=== PATIENT | female | born 1985 | race Caucasian/White ===

== ENCOUNTER 2024-02-28 06:26 | Emergency (ER) | payer MEDICAID ==
[~2024-02-28] VITALS: Ht 170.2 cm; Wt 61.8 kg
[~2024-02-28 06:26] MED LIST: HYDR-4353 PO; HYDR-4383 PO
[2024-02-28 06:41] VITALS: TEMP 96.4
[2024-02-28] MEDS: ketorolac trometh 30MG/ML vial 30 MG/ML VIAL IV ONE (07:10)
[2024-02-28] MEDS: normal saline 1000ML IV soln IVB ONE (07:10)
[2024-02-28] MEDS: ondansetron/PF 4mg/2ml inj IV ONE ×2 (07:19→09:42)
[2024-02-28 07:25] LABS: BASOPHILS # (AUTO) 0.1 X10'3 (0-0.2); BASOPHILS % (AUTO) 0.6 % (0-1); EOSINOPHILS # (AUTO) 0.1 X10'3 (0-0.9); EOSINOPHILS % (AUTO) 1.5 % (0-6); HEMATOCRIT 39.9 % (35.0-45.0); HEMOGLOBIN 13.3 g/dl (12.0-16.0); LYMPHOCYTES # (AUTO) 2.6 X10'3 (1.1-4.8); LYMPHOCYTES % (AUTO) 27.9 % (21-51); MEAN CORPUSCULAR HEMOGLOBIN 32.3 PG (27.0-31.0); MEAN CORPUSCULAR HGB CONC 33.3 g/dL (33.0-36.5); MEAN PLATELET VOLUME 8.5 FL (7.4-10.4); MONOCYTES # (AUTO) 0.6 X10'3 (0-0.9); MONOCYTES % (AUTO) 6.6 % (2-12); NEUTROPHILS # (AUTO) 5.9 X10'3 (1.8-7.7); NEUTROPHILS % (AUTO) 63.4 % (42-75); PLATELET COUNT 258 X10'3 (140-440); RED BLOOD COUNT 4.11 X10'6 (4.20-5.60); RED CELL DISTRIBUTION WIDTH 12.6 % (11.5-14.5); WHITE BLOOD COUNT 9.3 X10'3 (4.5-11.0)
[2024-02-28 07:42] LABS: ALANINE AMINOTRANSFERASE 13 U/L (12-78); ALBUMIN 3.6 G/DL (3.4-5.0); ALBUMIN/GLOBULIN RATIO 0.9 (1.1-1.5); ALKALINE PHOSPHATASE 72 IU/L (46-116); ANION GAP 6 (8-16); ASPARTATE AMINO TRANSFERASE 19 U/L (10-37); BILIRUBIN,TOTAL 0.2 MG/DL (0.1-1.0); BLOOD UREA NITROGEN 9 MG/DL (7-18); BUN/CREATININE RATIO 12.7 (10.0-20.0); CHLORIDE 105 MMOL/L (99-107); CREATININE 0.71 MG/DL (0.40-0.90); GLUCOSE 85 MG/DL (70-104); LIPASE 38 U/L (16-77); POTASSIUM 3.9 MMOL/L (3.5-5.1); SODIUM 141 MMOL/L (135-145); TOTAL CARBON DIOXIDE 29.7 MMOL/L (24-32); TOTAL PROTEIN 7.8 G/DL (6.4-8.2); eCRCL 102 ML/MIN; eGFR > 90 ML/MIN
[2024-02-28 09:37] LABS: URINE HCG NEGATIVE (NEG)
[2024-02-28 09:40] LABS: BILIRUBIN,URINE NEGATIVE (Neg); CLARITY,URINE CLOUDY (Clear); COLOR,URINE YELLOW (Yellow); GLUCOSE, URINE NEGATIVE (Neg); KETONES,URINE TRACE mg/dl (Neg); LEUKOCYTE ESTERASE ,URINE NEGATIVE (Neg); NITRITES, URINE NEGATIVE (Neg); OCCULT BLOOD,URINE LARGE (Neg); PROTEIN,URINE TRACE mg/dl (Neg)
[2024-02-28] MEDS: dicyclomine 10 MG capsule PO ONE (09:43)
[2024-02-28 10:13] LABS: UA COLLECTION TYPE CLN CATCH MIDSTREAM
[2024-02-28 10:14] LABS: SQUAMOUS EPITHELIAL CELL,UR MODERATE /LPF (FEW)
[2024-02-28 10:18] LABS: BACTERIA,URINE 2+ /HPF (Neg)
[2024-02-28 10:19] LABS: RBC,URINE 0-2 /HPF (0-2); WBC,URINE 0-4 /HPF (0-4)
[2024-02-28] MEDS ORDERED: DICY20TA17 PO (10:20)
[2024-02-28 10:27] VITALS: BP 113/67; PULSE 57; O2SAT 98
[2024-02-28 10:30] VITALS: RESP 16
== END 2024-02-28 10:37 | disposition home or self-care (01) ==
LOC: ER 06:27
DX: R10.30 Lower abdominal pain, unspecified (principal); R42 Dizziness and giddiness; J45.909 Unspecified asthma, uncomplicated; Z79.899 Other long term (current) drug therapy; Z72.89 Other problems related to lifestyle
CPT/HCPCS: 36415; 76830; 76856; 80053; 81001; 81025; 83690; 85025; 93976; 96361; 96374; 96375; 96376; 99285; J1885; J2405; J7030